=== PATIENT | male | born 1985 | race Caucasian/White ===

== ENCOUNTER 2018-01-29 21:37 | Emergency (ER) | payer MEDICAID ==
[2014-02-25 00:10] VITALS: BP 140/105
[~2018-01-29] VITALS: Ht 182.9 cm; Wt 88.6 kg
[~2018-01-29 21:37] MED LIST: CEPHALEXIN500 M1 PO; FLEXERIL10 MG PO; NORCO 325 MG-51 TAB PO; PROVENTIL0.09 MG/A1 IH
[2018-01-29] MEDS ORDERED: SEPTRA DS 8001 TAB PO (23:36)
== END 2018-01-29 23:50 | disposition home or self-care (01) ==
LOC: ED 21:37
DX: T15.01XA Foreign body in cornea, right eye, initial encounter (principal); S61.011A Laceration without foreign body of right thumb without damage to nail, initial encounter; W22.8XXA Striking against or struck by other objects, initial encounter; Y92.69 Other specified industrial and construction area as the place of occurrence of the external cause; L01.00 Impetigo, unspecified

== ENCOUNTER 2021-08-27 06:17 | Emergency (ER) | payer SELFPAY ==
[~2021-08-27] VITALS: Ht 182.9 cm; Wt 81.1 kg
[~2021-08-27 06:17] MED LIST changes: +SEPTRA DS 8001 TAB PO
[2021-08-27 09:38] VITALS: BP 142/88
== END 2021-08-27 09:38 | disposition short-term general hospital (02) ==
LOC: ED 06:17
DX: S52.501A Unspecified fracture of the lower end of right radius, initial encounter for closed fracture (principal); F17.210 Nicotine dependence, cigarettes, uncomplicated; W10.9XXA Fall (on) (from) unspecified stairs and steps, initial encounter
CPT/HCPCS: J2405; J3010